=== PATIENT | male | born 1980 | race Caucasian/White ===

== ENCOUNTER 2023-01-11 07:51 | Emergency (ER) | payer SELFPAY ==
[2023-01-11] VITALS (7 sets, daily range): BP systolic 162–206; BP diastolic 100–114; PULSE 81–110; RESP 16; TEMP 36.8; O2SAT 96–100; BMI 27.2
--- NOTE | 2023-01-11 | ECG_ITS ---
APPROVED REPORT Exam: Resting ECG HR:101 bpm ECG Measurements Heart Rate 101 AXES ME 140 P 59 QRSd 91 QRS 75 QT 323 T 52 QTc 381 Conclusion SINUS TACHYCARDIA ABNORMAL RHYTHM ECG UNCONFIRMED REPORT Electronically signed by : Lc Morales MD 01/13/2023 16:28:11
--- NOTE | 2023-01-11 08:10 | XR_ITS ---
FINAL REPORT CLINICAL HISTORY: Precordial chest pain COMPARISON: None FINDINGS: Two views of the chest were obtained. The heart size and pulmonary vascularity are within normal limits. The mediastinum is normal. No acute pulmonary abnormality is identified. There is no pneumothorax. The bony thorax is intact. IMPRESSION: No active cardiopulmonary disease. Reviewed, Interpreted and Dictated by Tito Cordero III, MD Transcribed by Debi Mulligan Authenticated and [facility]
--- NOTE | 2023-01-11 08:18 | HMH.EDGENADL ---
Discharge Plan Disposition Patient Disposition: Home, Self-Care Condition: Fair Prescriptions Prescriptions: New amlodipine 5 mg tablet 5 mg PO DAILY Qty: 30 0RF Referrals Follow up/Referrals: Provider,Referral, MD [Primary Care Provider] - See instructions Clinical Impressions Clinical Impression: Atypical chest pain, Alcohol withdrawal, Anxiety Instructions Patient Instructions: Essential Hypertension, DI for Atypical Chest Pain Discharge ED Provider: Emeterio Bradford General Adult HPI General Chief complaint: Chest Pain Stated complaint: chest pain Time Seen by Provider: 01/11/23 09:19 History of Present Illness HPI narrative: This is a 42-year-old white male without significant history except for daily alcohol use who presents to the emergency room with 2 weeks of intermittent substernal chest pain. Patient states the chest pain only occurs when he thinks about it. Patient denies any radiation. Patient denies any provocation or palliation. Patient denies any shortness of breath nausea vomiting diaphoresis. Patient admits to some lightheadedness patient denies any melena hematochezia or hematemesis. Related Data Previous Rx's Medication Instructions Recorded amlodipine 5 mg tablet 5 mg PO DAILY #30 tabs 01/11/23 Allergies Allergy/AdvReac Type Severity Reaction Status Date / Time No Known Allergies Allergy Verified 01/11/23 08:06 [facility] Disclaimer: The information contained in this section may have been updated after the patient was seen, as this information can be updated by other users. Medical History Alcohol abuse Social History (Updated 01/11/23 @ 08:28 by Michelle Russell RN) Smoking Status: Former smoker alcohol intake: current current occupational status: employed Travel in the last 8 weeks: None ROS Obtained: Yes All systems reviewed & no additional complaints except as documented Skin no rash or lesions HEENT no runny nose sore throat Pulmonary no cough or shortness of breath Cardiovascular see HPI GI no abdominal pain nausea or vomiting no dysuria pyuria hematuria Musculoskeletal no neck or back pain Endocrine no polydipsia polyuria or polyphasia Psych no SI or HI The rest of the systems were reviewed and found to be negative Physical Exam Narrative Physical exam: Skin: Warm and dry HEENT: Normocephalic atraumatic extract muscles are intact pupils are equal and reactive to light Neck: Supple nontender Lungs: Clear to auscultation Heart: Regular rate and rhythm Abdomen: NABS soft nontender Extremities: No clubbing cyanosis or edema Neurologic: No unilateral weakness or numbness there are fine resting tremors noted in both hands. There were also mild lingual fasciculations noted Lymphatic: No cervical or inguinal adenopathy Musculoskeletal: No tenderness of the dorsal or lumbar spine Psych: No SI or HI General General appearance: alert Respiratory Respiratory exam: Present normal lung sounds bilaterally Cardiovascular Cardiovascular exam: Present regular rate Neurological Exam Neurological exam: Present alert Medical Decision Making Shukri Inquiry Pt receiving controlled substance: No Vital Signs: 01/11/23 07:52 01/11/23 08:15 01/11/23 09:00 Temperature 98.2 F Temperature Source Oral Pulse Rate 110 H 86 Pulse Rate [Left Radial] 81 Respiratory Rate 16 Blood Pressure 206/114 H 203/113 H Blood Pressure [Right Arm] 185/110 H Blood Pressure Mean [Right Arm] 135 Blood Pressure Source [Right Arm] Automatic Cuff Blood Pressure Position [Right Arm] Sitting 02 Sat by Pulse Oximetry 96 99 100 Oxygen Delivery Method Room Air 01/11/23 09:31 Temperature Temperature Source Pulse Rate 110 H Pulse Rate [Left Radial] Respiratory Rate Blood Pressure 172/100 H Blood Pressure [Right Arm] Blood Pressure Mean [Right Arm] Blood Pressure Source [Right Arm] Blood Pressure Position [Right Arm] 02 Sat by Pu
--- NOTE | 2023-01-11 08:25 | PC.NURSE ---
pt to xr
[2023-01-11 08:27] LABS: Basophils % 0.8 % (0.1-2.0); Eosinophils # 0.1 K/mm3 (0.0-0.4); Hematocrit 49.4 % (42.0-52.0); Hemoglobin 16.4 g/dL (14.1-18.0); Lymphocytes # 1.2 K/mm3 (0.7-4.5); Lymphocytes % 24.1 % (10-50); Mean Corpuscular HGB Conc 33.1 g/dL (31.8-35.4); Mean Corpuscular Hemoglobin 29.3 pg (27.0-31.2); Mean Corpuscular Volume 88.5 fl (80-94); Mean Platelet Volume 7.5 fl (7.4-10.4); Monocytes # 0.3 K/mm3 (0.1-1.0); Monocytes % 6.5 % (1.7-9.3); Neutrophils # 3.4 K/mm3 (1.8-7.8); Neutrophils % 67.6 % (37.0-80.0); Platelet Count 266 K/mm3 (142-424); Red Blood Count 5.58 M/mm3 (4.60-6.20)
--- NOTE | 2023-01-11 08:29 | PC.NURSE ---
pt returned from xr
--- NOTE | 2023-01-11 08:51 | PC.NURSE ---
pt refused ativan at this time. he stated he doesnt have a ride home and doesnt want anything that would make him drowsy.
[2023-01-11 08:57] LABS: Alanine Aminotransferase 71 U/L (12-78); Albumin Level 5.1 g/dl (3.5-5.0); Albumin/Globulin Ratio 1.5 (1.1-1.8); Alkaline Phosphatase 81 U/L (38-126); Anion Gap 18.9 mEq/L (5-15); Aspartate Amino Transferase 71 U/L (17-59); Bilirubin,Total 0.5 mg/dl (0.2-1.3); Blood Urea Nitrogen 12 mg/dl (9-20); Calcium 9.2 mg/dl (8.4-10.2); Carbon Dioxide 25 mmol/L (22.0-30.0); Chloride 98 mmol/L (98-107); Creatinine Clearance Estimated 130 mL/min (50-200); Estimated Glomerular Filt Rate 93 ml/min (>60); GFR (African American) 112 ML/MIN (>60); Globulin 3.4 g/dL (1.3-3.2); Glucose 122 mg/dl (74-100); Magnesium 2.2 mg/dl (1.6-2.3); Potassium 3.9 mmoL/L (3.5-5.1); Sodium 138 mmol/L (136-145); Total Protein,Serum 8.5 g/dl (6.3-8.2)
[2023-01-11 09:06] LABS: Troponin I 0.02 ng/ml (0.00-0.034)
--- NOTE | 2023-01-11 09:15 | PC.NURSE ---
pt assited to and from br, no needs at this time
[2023-01-11 09:36] LABS: Ethyl Alcohol 16 mg/dl (0-10)
--- NOTE | 2023-01-11 10:02 | PC.NURSE ---
rounded on pt, no needs at this time. call light within reach
== END 2023-01-11 10:55 | disposition home or self-care (01) ==
PROVIDERS: Emergency Provider Emergency Medicine
DX: R07.89 Other chest pain (principal); F10.239 Alcohol dependence with withdrawal, unspecified; F41.9 Anxiety disorder, unspecified; Z87.891 Personal history of nicotine dependence; R00.0 Tachycardia, unspecified
CPT/HCPCS: 71046; 80053; 83735; 84484; 85025; 93005; 96361; 96374; 96375; 99285

== ENCOUNTER 2024-11-28 09:40 | Outpatient (CLI) | payer BC, SELFPAY ==
[2024-11-28 18:21] LABS: Basophils # 0.1 K/mm3 (0-0.2); Basophils % 1.3 % (0.1-2.0); Eosinophils # 0.1 Kmm3 (0.0-0.4); Eosinophils % 1.9 % (0.1-12.0); Hematocrit 47.3 % (42.0-52.0); Hemoglobin 15.5 g/dL (14.1-18.0); Lymphocytes # 0.8 K/mm3 (0.7-4.5); Lymphocytes % 14.7 % (10-50); Mean Corpuscular HGB Conc 32.8 g/dL (31.8-35.4); Mean Corpuscular Hemoglobin 29.2 pg (27.0-31.2); Mean Corpuscular Volume 89.2 fl (80-94); Mean Platelet Volume 9.5 fl (7.4-10.4); Monocytes # 0.5 K/mm3 (0.1-1.0); Monocytes % 8.4 % (1.7-9.3); Neutrophils # 3.9 K/mm3 (1.8-7.8); Neutrophils % 73.1 % (37.0-80.0); Nucleated Red Blood Cells # 0 10^3/uL; Nucleated Red Blood Cells % 0 %; Platelet Count 217 K/mm3 (142-424); Red Cell Distribution Width 12.6 % (11.5-17.5); Red Cell Distribution Width-SD 41.1 fL; White Blood Count 5.4 K/mm3 (4.8-10.8)
[2024-11-28 19:01] LABS: Alanine Aminotransferase 50 U/L (12-78); Alkaline Phosphatase 87 U/L (38-126); Anion Gap 14.2 mEq/L (5-15); Aspartate Amino Transferase 47 U/L (17-59); Bilirubin,Total 0.6 mg/dl (0.2-1.3); Calcium 10.2 mg/dl (8.4-10.2); Carbon Dioxide 24 mmol/L (22.0-30.0); Chloride 105 mmol/L (98-107); Glucose 110 mg/dl (74-100); HDL Cholesterol 59 mg/dl (40-60); Potassium 5.2 mmoL/L (3.5-5.1); Sodium 138 mmol/L (136-145)
[2024-11-28 19:03] LABS: Albumin Level 5.2 g/dl (3.5-5.0); Albumin/Globulin Ratio 1.9 (1.1-1.8); Blood Urea Nitrogen 16 mg/dl (9-20); Estimated Glomerular Filt Rate 105 ml/min (>60); GFR (African American) 127 ML/MIN (>60); Globulin 2.7 g/dL (1.3-3.2); Total Protein,Serum 7.9 g/dl (6.3-8.2)
[2024-11-28 19:12] LABS: Direct LDL Cholesterol 160.04 mg/dL (100-129)
[2024-11-28 19:14] LABS: Triglycerides 421 mg/dl (30-150)
[2024-11-28 19:16] LABS: T4 (Thyroxine) 8.5 ug/dl (5.53-11.0)
[2024-11-28 19:26] LABS: Cholesterol 321 mg/dl (140-200)
[2024-11-28 19:29] LABS: Prostate Specific Ag Screen 0.8 ng/ml (0.0-4.0); Thyroid Stimulating Hormone 1.01 uIU/mL (0.465-4.68)
[2024-11-28 19:31] LABS: 25-OH Vitamin D, Total 18.5 ng/mL (30-100)
[2024-11-28 19:32] LABS: Chol/HDL Ratio 5.4 (1-3.5)
== END 2024-11-28 23:59 | disposition home or self-care (01) ==
LOC: LAB.DROPOF 11-29 12:31
PROVIDERS: PCP Nurse Practitioner Family; Visit Provider Nurse Practitioner Family
DX: Z12.5 Encounter for screening for malignant neoplasm of prostate (principal); Z76.89 Persons encountering health services in other specified circumstances; I10 Essential (primary) hypertension; F32.A Depression, unspecified; F41.9 Anxiety disorder, unspecified; F17.210 Nicotine dependence, cigarettes, uncomplicated
CPT/HCPCS: 80053; 80061; 82306; 84403; 84436; 84443; 85025; G0103

== ENCOUNTER 2025-01-09 08:55 | Outpatient (CLI) | payer BC, SELFPAY ==
--- OUTSIDE RECORDS SUMMARY | 2006-09-22 09:58 | XMS_ITS | Continuity of Care Document ---
Author Organization [facility] Address [address] [place] [address] Phone Care Team Providers Care Registered Associate Name Role Phone Albert Shaw MD Unavailable Unavailable Allergies, Adverse Reactions, Alerts Substance Reaction Status Criticality acetaminophen Active No Information Medications Medication Instructions Dosage Effective Dates (start - stop) Status Comments CYCLOBENZAPRINE HCL (unknown strength) Not Available - Active STAGESIC-10 (unknown strength) Not Available - Active ADVIL (unknown strength) Not Available - Active Advance Directives Directive Yes / No Effective Date File Name No Information Encounters Encounter Description Practice Location Reason(s) For Visit Diagnoses Date Provider Providers Copied on Encounter [facility] [address], [facility], tel:[phone] 00 [facility] No Information [address] Colin Price. [address] [place] [place] [address], [id number] . tel:[phone] [facility] [address], [facility], tel:[phone] [facility] No Information [address] Colin Price. [address] [place] [place] [address], [id number] . tel:[phone] Family History Family Member Type Diagnosis Age At Onset Gen Fam Hx Problem (finding) Hypertension , Heart Disease ,Osteoarthritis Gen Fam Hx Problem (finding) Arthritis ,Cancer ,Diab etes Payers Payer name Insurance type Covered democrat ID Authoriza tion(s) No Information Social History [...]
[2025-01-09 19:38] LABS: Chloride 105 mmol/L (98-107); Potassium 4.3 mmoL/L (3.5-5.1); Sodium 139 mmol/L (136-145)
[2025-01-09 19:41] LABS: Anion Gap 14.3 mEq/L (5-15); Blood Urea Nitrogen 16 mg/dl (9-20); Calcium 10.4 mg/dl (8.4-10.2); Carbon Dioxide 24 mmol/L (22.0-30.0); Estimated Glomerular Filt Rate 105 ml/min (>60); GFR (African American) 127 ML/MIN (>60); Glucose 108 mg/dl (74-100)
[2025-01-09 19:56] LABS: Free T4 (Free Thyroxine) 1.13 ng/dl (0.78-2.19)
[2025-01-09 20:12] LABS: Thyroid Stimulating Hormone 0.82 uIU/mL (0.465-4.68)
--- OUTSIDE RECORDS SUMMARY | 2025-01-10 23:13 | XMS_ITS | Clinical Summary ---
Author Organization [facility] [place] [address] Care Team Providers Care Patent Law Specialist Name Role Phone Unavailable Primary Care Provider Unavailabl e Social History Tobacco Use Types Packs/Day Years Used Date Smoking Tobacco: Never Assessed Sex and Gender Information Value Date Recorded Sex Assigned at Not on file Legal Sex Male 4:52 PM EDT Gender Identity Not on file Sexual Orientation Not on file Plan of Treatment Health Maintenance Due Date Last Done Comments Annual Wellness Exam 1983 DTaP/TDaP/Td (1 - Tdap) 1999 Hepatitis B Vaccine (1 of 3 - 19+ 3-dose series) 1999 COVID-19 Vaccine (2023-2 5 season) 2024 Influenza Vaccine (Season Ended) 2025 Meningococcal B Vaccine Aged Out No l onger eligible based on patient's age to complete this topic Pneumococcal Vaccine 0-49 Aged Out No longer eligible based on patient's age to complete this topic
== END 2025-01-09 23:59 | disposition home or self-care (01) ==
LOC: LAB.DROPOF 01-10 23:12
PROVIDERS: PCP Internal Medicine; Visit Provider Internal Medicine
DX: E29.1 Testicular hypofunction (principal); I10 Essential (primary) hypertension; R79.89 Other specified abnormal findings of blood chemistry; Z82.49 Family history of ischemic heart disease and other diseases of the circulatory system

== ENCOUNTER 2025-01-24 07:59 | Outpatient (CLI) | payer BC, SELFPAY ==
--- OUTSIDE RECORDS SUMMARY | 2006-09-22 09:58 | XMS_ITS | Continuity of Care Document ---
Author Organization [facility] Address [address] [place] [address] Phone Care Team Providers Care Photo Studio Assistant Name Role Phone Albert Shaw MD Unavailable [...] Date Provider Providers Copied on Encounter [facility] [address], [facility], tel:[phone] 00 [facility] No Information [address] Colin Price. [address] [place] [address], [id number] . tel:[phone] [facility] [address], [facility], tel:[phone] [facility] No Information [address] Colin Price. [address] [place] [address], [id number] . tel:[phone] Family History Family Member Type Diagnosis Age At Onset Gen Fam Hx Problem (finding) Hypertension , Heart Disease ,Osteoarthritis Gen Fam Hx Problem (finding) Arthritis ,Cancer ,Diab etes Payers Payer name Insurance type Covered alliance party ID Authoriza tion(s) No Information Social History [...]
--- NOTE | 2025-01-24 08:00 | CA_ITS ---
APPROVED REPORT EXAM: Comprehensive 2D, Doppler, and color-flow Echocardiogram Grain Wafer Machine Operator: Aixa Brewster RCS, RVS Ht: 5 ft 10 in Wt: 216lbs BSA: 2.16 BP: 139/86 mmHg Rhythm: NSR Indications: Chest pain, strong family history CAD, Ex-smoker, HTN 2D Dimensions Left Atrium 3.34 cm M: 3.0 - 4.0 LA Volume 50.00 mL LA Volume Index 23.410293 mL/m2 (M/F) 16-34 M-Mode Dimensions RVDd 1.88 cm (0.9-2.6) LA Diam 3.23 cm (1.9-4.0) LVDd 4.97 cm (3.5-5.7) LVDs 3.40 cm (3.5-5.7) IVSd 1.08 cm (0.6-1.1) PWd 0.96 cm (0.6-1.1) EF (Teich) 59.30% FS 31.60% EDV (Teich) 116.60 mL TAPSE 2.04 (<1.7) ESV (Teich) 47.40 mL LV Diastology E Decel Time 233 (160-240 msec) E/A Ratio 0.84 MED A' 12.00 cm/s LAT A' 14.00 cm/s Aortic Valve GABBY Index 1.24 cm2/m2 AoV Peak Kory. 155.0 (50-130 cm/s) AO Peak GR. 9.60 mmHg AO Mean GR. 5.40 (<5 mmHg) AO VTI 31.4 (18-25 cm) GABBY (VTI) 2.75 (2.5-4.5 cm2) Mitral Valve MV A Velocity 89.0 (40-130 cm/s) E/A Ratio 0.84 Tricuspid Valve TR P. Velocity 207.00 cm/s RAP Estimate 10.00 mmHg RVSP 27.10 mmHg Left Ventricle The left ventricle is normal size. The left ventricular systolic function is normal. The left ventricular ejection fraction is within the normal range. There is normal left ventricular wall thickness. There is normal LV segmental wall motion. The left ventricular diastolic function is normal. LVEF is 55%. Right Ventricle The right ventricle is normal size. The right ventricular systolic function is normal. Atria The left atrium size is normal. The right atrium size is normal. There is no Doppler evidence of interatrial shunt. Aortic Valve Aortic valve opens well. There is no aortic valvular stenosis. No aortic regurgitation is present. Mitral Valve The mitral valve is normal in structure. No evidence of mitral valve stenosis. Trace mitral regurgitation. Tricuspid Valve Tricuspid valve is grossly normal in structure and function. Trace tricuspid regurgitation. There is insufficient TR jet to estimate RVSP. Pulmonic Valve The pulmonary valve is normal in structure. Trace pulmonic regurgitation. Great Vessels The aortic root is normal in size. IVC is normal in size and collapses >50% with inspiration. Pericardium There is no pericardial effusion. Other Information Study Quality: Adequate Conclusion Normal biventricular systolic function. No significant valvular stenosis or regurgitation. Electronically signed by : Betty Dhaliwal MD 01/28/2025 00:56:54
--- OUTSIDE RECORDS SUMMARY | 2025-01-24 08:02 | XMS_ITS | Clinical Summary ---
Author Organization [facility] [place] [address] Care Team Providers Care Real Estate Transaction Coordinator Name Role Phone Unavailable Primary Care Provider [...]
== END 2025-01-24 23:59 | disposition home or self-care (01) ==
LOC: RT 08:00
PROVIDERS: Visit Provider Internal Medicine
DX: R94.31 Abnormal electrocardiogram [ECG] [EKG] (principal); R07.89 Other chest pain; I10 Essential (primary) hypertension; Z82.49 Family history of ischemic heart disease and other diseases of the circulatory system; Z87.891 Personal history of nicotine dependence
CPT/HCPCS: 93306

== ENCOUNTER 2025-01-28 09:55 | Outpatient (CLI) | payer BC, SELFPAY ==
--- OUTSIDE RECORDS SUMMARY | 2025-01-28 09:58 | XMS_ITS | Clinical Summary ---
Author Organization [facility] [place] [address] Care Team Providers Care Electric Organ Checker Name Role Phone Unavailable Primary Care Provider [...]
--- NOTE | 2025-01-28 10:00 | CA_ITS ---
APPROVED REPORT Exam: Exercise Treadmill Technologist: Sherri Mitchell Ht: 5 ft 10 in Wt: 214 lbs BSA: 2.15 m2 HR: 95 bpm BP: 155/87 mmHg Stress Test Details Test: Exercise stress testing was performed using a Pradeep protocol. HR Resting HR: 95 bpm Max Heart Rate (APMHR): 176.643213 bpm Max HR Achieved: 188 bpm Target HR (85% APMHR): 149.853164 bpm % of APMHR: 106.82 Recovery HR: 117 bpm BP Resting BP: 155.0/87.0 mmHg Max BP: 182.0/88.0 mmHg Recovery BP: 140.0/78.0 mmHg ECG Resting ECG: Sinus rhythm Stress ECG Conclusion Symptoms: Leg fatigue Arrhythmias/Ectopy: PVC ST-T Changes: 1-[address] depression. Conclusion: Abnormal EKG response to exercise. Electronically signed by : Betty Dhaliwal MD 01/29/2025 00:23:55
== END 2025-01-28 23:59 | disposition home or self-care (01) ==
LOC: RT 09:55
PROVIDERS: PCP Nurse Practitioner Family; Visit Provider Internal Medicine
DX: I49.3 Ventricular premature depolarization (principal); R94.31 Abnormal electrocardiogram [ECG] [EKG]; I10 Essential (primary) hypertension
CPT/HCPCS: 93017; 93018

== ENCOUNTER 2025-03-11 07:36 | Outpatient (CLI) | payer BC, SELFPAY ==
--- OUTSIDE RECORDS SUMMARY | 2006-09-22 09:58 | XMS_ITS | Continuity of Care Document ---
Author Organization [facility] Address [address] [place] [address] Phone Care Team Providers Care Metal Roaster Name Role Phone Albert Shaw MD Unavailable Unavailable Allergies, Adverse Reactions, Alerts Substance Reaction Status Criticality acetaminophen Active No Information Medications Medication Instructions Dosage Effective Dates (start - stop) Status Comments ADVIL (unknown strength) Not Available - Active STAGESIC-10 (unknown strength) Not Available - Active CYCLOBENZAPRINE HCL (unknown strength) Not Available - Active Advance Directives Directive Yes / No Effective Date File Name No Information Encounters Encounter Description Practice Location Reason(s) For Visit Diagnoses Date Provider Providers Copied on Encounter [facility] [address], [facility] [place], tel:[phone] 00 [facility] No Information [address] Price. [address] [place] [address], [id number] . tel:[phone] [facility] [address], [facility], tel:[phone] 00 [facility] No Information [address] Colin Price. [address] [place] [address], [id number] . tel:[phone] Family History Family Member Type Diagnosis Age At Onset Gen Fam Hx Problem (finding) Hypertension , Heart Disease ,Osteoarthritis Gen Fam Hx Problem (finding) Arthritis ,Cancer ,Diab etes Payers Payer name Insurance type Covered republican ID Authoriza tion(s) No Information Social History Type Description Quantity Date Captured Comments Sex Male Smoking Status No Information Chief Complaint And Reason For Visit No Information Reason For Referral Reason For Referral No Information History Of Present Illness Encounter Date Complaint History Of Prese nt Illness No Information Functional Status Date Functional Assessmen t No Information Instructions Date Instruction Additional Infor mation No Information Assessments Type Assessment Date No Information Patient Care Teams Name Effective Dates (start - stop) Status Members No Information
--- OUTSIDE RECORDS SUMMARY | 2025-03-11 07:37 | XMS_ITS | Clinical Summary ---
Author Organization [facility] [address] Care Team Providers Care Candle Making Supervisor Name Role Phone Unavailable Primary Care Provider [...] Vaccine (2023-2 5 season) 2024 Influenza Vaccine (#1) 2025 Meningococcal B Vaccine Aged Out No l onger eligible based on patient's age to complete this topic Pneumococcal Vaccine 0-49 Aged Out No longer eligible based on patient's age to complete this topic
[2025-03-11 07:53] VITALS: BMI 30.5
[2025-03-11] MEDS: METOPROLOL TARTRATE 50MG TABLET PO (08:09)
[2025-03-11] MEDS: IVABRADINE HCL 7.5MG TABLET PO (08:09)
[2025-03-11 08:15] VITALS: BP 136/81; PULSE 75; RESP 18; O2SAT 100
[2025-03-11 08:17] LABS: Anion Gap 13.9 mEq/L (5-15); Blood Urea Nitrogen 13 mg/dl (9-20); Calcium 9.4 mg/dl (8.4-10.2); Carbon Dioxide 25 mmol/L (22.0-30.0); Chloride 102 mmol/L (98-107); Creatinine Clearance Estimated 161 mL/min (50-200); Creatinine,Serum 0.80 mg/dl (0.66-1.25); Estimated Glomerular Filt Rate 105 ml/min (>60); GFR (African American) 127 ML/MIN (>60); Glucose 113 mg/dl (74-100); Potassium 3.9 mmoL/L (3.5-5.1); Sodium 137 mmol/L (136-145)
[2025-03-11 08:37] VITALS: BP 136/95; PULSE 72; O2SAT 99
[2025-03-11] MEDS: NITROGLYCERIN 0.4MG SL TABLET SL (08:37)
[2025-03-11 08:44] VITALS: BP 119/78; PULSE 67; O2SAT 100
[2025-03-11] MEDS: 0.9 % SODIUM CHLORIDE 50 ML VIAL IV (08:45)
[2025-03-11] MEDS: SODIUM CHLORIDE 0.9% 10ML SYR (RAD ONLY) 10 ML IV (08:45)
[2025-03-11] MEDS: IOPAMIDOL-370 (76%);100ML BOTTLE 85 ML IV (08:46)
[2025-03-11 08:53] VITALS: BP 116/75; PULSE 63; O2SAT 98
== END 2025-03-11 08:59 | disposition home or self-care (01) ==
PROVIDERS: PCP Nurse Practitioner Family; Visit Provider Internal Medicine
DX: I25.10 Atherosclerotic heart disease of native coronary artery without angina pectoris (principal); I10 Essential (primary) hypertension; R94.39 Abnormal result of other cardiovascular function study; R94.31 Abnormal electrocardiogram [ECG] [EKG]
CPT/HCPCS: 75574; 80048; Q9967

== ENCOUNTER 2025-07-10 09:31 | Outpatient (CLI) | payer BC, SELFPAY ==
[2025-07-13 06:43] LABS: Testosterone,Total 459 ng/dL (264-916)
== END 2025-07-10 23:59 | disposition home or self-care (01) ==
LOC: LAB.DROPOF 07-11 14:10
PROVIDERS: PCP Nurse Practitioner Family; Visit Provider Nurse Practitioner Family
DX: E29.1 Testicular hypofunction (principal); R79.89 Other specified abnormal findings of blood chemistry
CPT/HCPCS: 84403